=== PATIENT | male | born 1975 | race Caucasian/White ===

== ENCOUNTER → 2022-04-06 | Emergency (ER) | payer MEDICAID ==
[~2022-04-06] VITALS: Ht 175.3 cm; Wt 94.3 kg
[~2022-04-06] MED LIST: LORazepam 1 MG TABLET PO ONE
--- NOTE | 2022-04-06 09:45 | NUR ---
Pt presents to the ER [facility] from [place] with CC Syncope. Pt was having a cigarette at an outdoor bench when he became unresponsive, diaphretic and stuped over onto table with LOC. Pt skin intact, no signs of trauma, denies chest pain, denies NV and requesting food stating he felt dizzy due to hunger. Pt is on a hold for danger to self with SI. A sittter TOPHER Tenorio is present from [facility]. No allergies, No PMHx
[2022-04-06 10:00] VITALS: BP_SYST 119
--- NOTE | 2022-04-06 10:00 | NUR ---
Patient to ER bed H1 for evaluation. Side rails up. Report given to Claritza OBANDO.
[2022-04-06 10:50] LABS: BASOPHILS % (AUTO) 0.3 % (0.0-2.0); EOSINOPHILS # (AUTO) 0.1 K/uL (0.0-0.4); EOSINOPHILS % (AUTO) 1.3 % (0.0-4.0); HEMATOCRIT 52.8 % (36-54); HEMOGLOBIN 18.1 g/dL (14.0-18.0); LYMPHOCYTES # (AUTO) 0.7 K/uL (1.0-5.5); MEAN CORPUSCULAR HEMOGLOBIN 33 pg (27-31); MEAN CORPUSCULAR HGB CONC 34 % (32-36); MEAN CORPUSCULAR VOLUME 95 fL (79.0-98.0); MONOCYTES # (AUTO) 0.3 K/uL (0.0-1.0); MONOCYTES % (AUTO) 4.1 % (1.7-9.3); NEUTROPHILS # (AUTO) 6.5 K/uL (1.8-7.7); NEUTROPHILS % (AUTO) 85.3 % (40.0-70.0); PLATELET COUNT (AUTO) 196 K/uL (130-430); RED BLOOD CELL COUNT(AUTO) 5.55 MIL/uL (4.2-6.2); WHITE BLOOD COUNT (AUTO) 7.6 K/uL (4.8-10.8)
[2022-04-06 11:07] LABS: ANION GAP 4 (5-15); CALCIUM 8.7 mg/dL (8.4-11.0); CHLORIDE 99 mmol/L (98-107); CREATININE 1.33 mg/dL (0.55-1.30); GLUCOSE 150 mg/dL (70-99); POTASSIUM 4.9 mmol/L (3.5-5.1); SODIUM SERUM 133 mmol/L (136-145); UREA NITROGEN, BLOOD 11 mg/dL (8-21)
[2022-04-06 11:08] LABS: GFR AFRICAN AMERICAN 74 mL/min (>90)
[2022-04-06 11:25] LABS: ACETAMINOPHEN < 1 ug/mL (1-30); ALANINE AMINOTRANSFERASE 44 U/L (12-78); ALBUMIN 3.6 g/dL (3.4-4.8); ALCOHOL, BLOOD < 3 mg/dL (<10); ASPARTATE AMINOTRANSFERASE 18 U/L (10-37); TOTAL BILIRUBIN 0.7 mg/dL (0.0-1.0)
--- NOTE | 2022-04-06 11:57 | NUR ---
Pt is agitated sitting at the edge of bed with arms crosssed from the waiting times and states he will "Walk right out of here" before school babysitter notes medication use to MD Ramirez will await orders.
[2022-04-06 11:58] LABS: CHOLESTEROL 162 mg/dL (<200); HDL CHOLESTEROL 29 mg/dL (>45); LDL CHOLESTEROL 114 mg/dL (<100); TRIGLYCERIDES 171 mg/dL (30-150)
--- NOTE | 2022-04-06 12:03 | NUR ---
Pt is sitting at the edge of the bed with arms crossed and slightly agitated stating wants to get back to his ABX and continue with his program.
--- NOTE | 2022-04-06 12:10 | NUR ---
PT REFUSES PRN MEDICINE FOR AGITATION. CALMING MEASURES AND REPOSITIONED THE PATIENT.
[2022-04-06 12:45] LABS: BILIRUBIN,URINE NEGATIVE (NEGATIVE); BLOOD, URINE NEGATIVE (NEGATIVE); CLARITY/URINE CLEAR (CLEAR); COLOR,URINE YELLOW (YELLOW); GLUCOSE,URINE NEGATIVE (NEGATIVE); KETONES,URINE NEGATIVE (NEGATIVE); LEUKOCYTE ESTERASE ,URINE NEGATIVE (NEGATIVE); NITRITE, URINE NEGATIVE (NEGATIVE); PH,URINE 7.5 (5.0-8.0); PROTEIN URINE NEGATIVE (NEGATIVE); UROBILINOGEN,URINE 0.2 (0.2-1.0)
[2022-04-06 12:57] LABS: BARBITURATE, URINE NEGATIVE (NEG <=200); BENZODIAZEPINE, URINE NEGATIVE (NEG <=150); CANNABINOID, URINE NEGATIVE (NEG <=50); COCAINE, URINE NEGATIVE (NEG <=150); METHAMPHETAMINES SCREEN,URINE POSITIVE (NEG <=500); OPIATE, URINE NEGATIVE (NEG <=100); PHENCYCLIDINE SCREEN,URINE NEGATIVE (NEG <=25); UR TRICYCLIC ANTIDEPRESSANTS NEGATIVE (NEG <=300); URINE AMPHETAMINE POSITIVE (NEG <=500); URINE METHADONE NEGATIVE (NEG <=200); URINE OXYCODONE SCREEN NEGATIVE (NEG <=100); URINE PROPOXYPHENE SCREEN NEGATIVE (NEG <=300)
--- NOTE | 2022-04-06 13:07 | NUR ---
PT AAOX4 SITTING IN BED EATING LUNCH TRAY NO COMPLAINTS AT THIS TIME. SITTER IS PRESENT AND INTERACTING POSITIVELY WITH THE PATIENT.
--- NOTE | 2022-04-06 14:09 | NUR ---
Patient walked out of marin toward door and was asked to return to bed for continued care. Patient given information related to possible complications, up to and including , which could occur as a result of leaving hospital at this time. Patient verbalizes understanding of risks involved leaving against medical advice. Patient sitting in a bed oversight from a sitter and psychiatric secretary monitoring pt at this time.
--- NOTE | 2022-04-06 14:17 | NUR ---
Transportation services: [facility] unavailable at this time. will continue to provide transportation.
--- NOTE | 2022-04-06 14:44 | NUR ---
Pt is resting in bedroom #5 with no signs of acute distress. VSS.
--- NOTE | 2022-04-06 16:12 | NUR ---
Pt requesting food, sitting up in bed with a turkey sandwich and applejuice. Pt is calmer at this time speaking kindly to staff.
--- NOTE | 2022-04-06 16:54 | NUR ---
Pt is asleep at this time, sitter monitoring pt at this time.
--- NOTE | 2022-04-06 17:30 | NUR ---
ETA 1900 Addendum: 04/06/22 at 1743 by [email or web address] CALLED BACK AND STATED UPDATED ETA IS 2000
--- NOTE | 2022-04-06 19:08 | NUR ---
Sitter at bedside with patient. Pt is asleep at this time. Transportation is due at 1999 for d/c and return to [facility].
--- NOTE | 2022-04-06 19:11 | NUR ---
REPORT GIVEN TO SAMPSON HORVATH. ALL CARES TRANSFERRED AT THIS TIME.
--- NOTE | 2022-04-06 19:47 | NUR ---
Report for transfer to [facility] given to EMT . Pt VSS. no acute distress
[2022-04-06 19:49] VITALS: BP_SYST 152
== END | disposition home or self-care (01) ==
LOC: SED 09:37
DX: R55 Syncope and collapse (principal); F17.200 Nicotine dependence, unspecified, uncomplicated; Z79.899 Other long term (current) drug therapy; Z20.822 Contact with and (suspected) exposure to COVID-19
CPT/HCPCS: 99285; 87426; 80061; 80307; 80053; 85025; 87081; 84484; 36415; 93005; 83036; 81003; G0482; G0480; G0481